=== PATIENT | male | born 1985 | race Caucasian/White ===

== ENCOUNTER 2017-06-01 12:03 | Emergency (ER) | payer MEDICAID ==
--- NOTE | ~2017-06-01 | CT2 ---
[facility] A Service of [facility] [place] RADIOLOGY TEXT RESULTS PATIENT: RADHA GILMAN LOCATION: SED : [birth year] UNIT #: [id number] AGE: [address]: Morgan Dawn MD SEX: M ORDER DR: [id number] [place] [id number] MR#: [id number] Acc #: [id number] NAME: RADHA GILMAN : 1985 SEX: M STUDY DATE/TIME: 06/01/2017 15:12 UNIT: SED ROOM: STUDY DESCRIPTION: CT Abd and Pelv W Cont Attending Physician: Morgan Dawn M.D. Ordering Physician: Morgan Dawn M.D. MEDICAL IMAGING REPORT This report is preliminary unless electronic signature is present. EXAM CT abdomen and pelvis with contrast INDICATIONS Worsening abdominal pain on the right for 3-[address] of the abdomen and pelvis was performed following administration of oral and IV contrast. Coronal and sagittal reformatted images were obtained. This CT exam was performed with one or more of the following radiation dose reduction techniques: automatic exposure control, adjustment of mA and/or kV according to patient size, and iterative reconstruction. COMPARISON STUDIES 07/25/2015. FINDINGS Lung bases are clear. Liver, gallbladder and spleen are unremarkable. Tiny cyst in the left kidney. The right kidney is unremarkable. The adrenal glands are unremarkable. Pancreas is unremarkable. There pelvis. The colon is unremarkable. The appendix is normal. No free fluid. The bone windows are unremarkable. IMPRESSION No acute findings. Normal appendix. Dictated by... Dominic Espinal M.D. [facility] A Service [facility] RADIOLOGY TEXT RESULTS PATIENT: RADHA GILMAN LOCATION: SED : [birth year] UNIT #: [id number] AGE: [address]: Morgan Dawn MD SEX: M ORDER DR: THIS IS AN ELECTRONICALLY VERIFIED REPORT Dominic Espinal M.D. at 06/03/2017 7:56 AM ARS/pcl TD: 06/01/2017 18:21 JOB #: [id number] MEDICAL IMAGING REPORT Page 1 of 1
[~2017-06-01 12:03] MED LIST: LEVAQUIN PO; NORCO 7.5-3251 EACH PO; NYSTATIN15 GM OINT EXT; PHENERGAN25 MG PO; SODIUM CHLORI1000 ML SUBD
[2017-06-01 13:22] LABS: BASOPHIL# 0.1 X10e3 (0-0.3); BASOPHIL% 0.8 % (0-2.5); EOSINOPHIL# 0.2 X10e3 (0-0.7); EOSINOPHIL% 2.1 % (0.0-7.0); HEMATOCRIT 43.6 % (38.0-50.0); HEMOGLOBIN 15.2 gm/dL (13.0-16.0); LYMPHOCYTE# 2.3 X10e3 (1.0-3.5); LYMPHOCYTE% 27.8 % (17.0-45.0); MEAN CELL VOLUME 91.5 FL (83-96); MEAN PLATELET VOLUME 10.2 FL (6.5-11.5); MONOCYTE# 0.6 X10e3 (0-1.0); MONOCYTE% 6.6 % (3.0-12.0); NEUTROPHIL# 5.3 X10e3 (1.5-7.1); NEUTROPHIL% 62.7 % (40-75); PLATELET COUNT 286 X10e3 (140-420); RED BLOOD COUNT 4.76 X10e (3.90-5.60); RED CELL DISTRIBUTION WIDTH 12.5 % (11.0-15.5); WHITE BLOOD COUNT 8.4 X10e3 (4.0-10.5)
[2017-06-01 13:23] LABS: DIFF IND NO
[2017-06-01 13:35] LABS: ALBUMIN SERUM 4.6 g/dL (3.5-5.0); BILIRUBIN, DIRECT 0.1 mg/dL (0.0-0.2); BILIRUBIN,INDIRECT 0.9 mg/dL (0.0-0.9); BUN/CREATININE RATIO 10.83; CALCIUM SERUM 9.4 mg/dL (8.4-10.2); CREATININE SERUM 1.2 mg/dL (0.6-1.4); GLOM FILT RATE Estimated 80.7 mL/min (>60); POTASSIUM 4.2 mmol/L (3.5-5.1); PROTEIN TOTAL SERUM 8.1 g/dL (6.0-8.3)
[2017-06-01 14:00] LABS: URINE APPEARANCE CLEAR; URINE BILIRUBIN NEG (NEG); URINE BLOOD NEG (NEG); URINE COLOR YELLOW; URINE GLUCOSE NEG (NORM); URINE KETONE NEG (NEG); URINE LEUKOCYTE ESTERASE NEG (NEG); URINE NITRATE NEG (NEG); URINE PH 6.5 (5-8); URINE PROTEIN NEG (NEG); URINE SOURCE CLEAN CATCH; URINE SPECIFIC GRAVITY <=1.005 (1.003-1.035); URINE UROBILINOGEN 0.2 MG/DL (NORM)
[2017-06-01 14:01] LABS: MICRO INDICATED? NO
== END 2017-06-01 17:10 | disposition home or self-care (01) ==
LOC: SED 12:03
PROVIDERS: Emergency Medicine
DX: R10.11 Right upper quadrant pain (principal); R10.31 Right lower quadrant pain
CPT/HCPCS: 36415; 74177; 80048; 80076; 81003; 82150; 83690; 85025; 96361; 96374; 96375; 99284; J2270; J2405; Q9967